=== PATIENT | male | born 1975 | race Caucasian/White ===

== ENCOUNTER 2019-05-25 16:10 | Emergency (ER) | payer OTHER ==
[~2019-05-25] VITALS: Ht 175.3 cm; Wt 131.5 kg
[2019-05-25 16:39] VITALS: BP_SYST 156
--- NOTE | 2019-05-25 18:44 | NUR ---
Patient to ER bed 7 to gown for evaluation. Side rails up. Report given to Teresita NATH.
--- NOTE | 2019-05-25 18:46 | NUR ---
Pt brought by self, A&Ox4, pt presents to ER with pain/swelling on R lower leg, pt states he had R ankle fracture 2 months ago, skin pink and warm, cap refill <3, VSS, respirations even and unlabored.
[2019-05-25] MEDS ORDERED: KETOROLAC TROMETHAMINE 60 MG/2 ML VIAL IM ONE (19:00)
--- NOTE | 2019-05-25 19:00 | NUR ---
Radha King [employer] at bedside examining patient
[2019-05-25 19:32] VITALS: BP_SYST 148
--- NOTE | 2019-05-25 19:33 | NUR ---
Patient given written and verbal discharge instructions and verbalizes understanding. ER MD discussed with patient the results and treatment provided. Patient in stable condition. ID arm band removed. Rx of Ibuprofen given. Patient educated on pain management and to follow up with PMD. Pain Scale 3/10 tolerable for patient Opportunity for questions provided and answered. Medication side effect fact sheet provided.
== END 2019-05-25 19:32 | disposition home or self-care (01) ==
LOC: SED 16:10
DX: R60.0 Localized edema (principal); I10 Essential (primary) hypertension
CPT/HCPCS: 93971; 96372; 99284; J1885

== ENCOUNTER 2020-10-23 14:56 | Emergency (ER) | payer OTHER, SELFPAY ==
[~2020-10-23] VITALS: Ht 175.3 cm; Wt 127.0 kg
[2020-10-23 15:07] VITALS: BP_SYST 170
--- NOTE | 2020-10-23 15:12 | NUR ---
Patient triaged and placed in ER tent. VSS and patient appears in no acute distress at this time. Awaiting available bed, and MD notified of need for MSE.
--- NOTE | 2020-10-23 15:13 | NUR ---
Patient was diagnosed today with COVID-19. His MD instructed him to check in to the ER due to cormorbidities. Patient has no complaints at this time.
--- NOTE | 2020-10-23 15:30 | NUR ---
ER in tent examining patient.
[2020-10-23 16:43] VITALS: BP_SYST 170
--- NOTE | 2020-10-23 16:43 | NUR ---
Patient given written and verbal discharge instructions and verbalizes understanding. ER MD discussed with patient the results and treatment provided. Patient in stable condition. ID arm band removed. Rx of Azithromycin, Promethazine DM, and Zinc given. Patient educated on pain management and to follow up with PMD. Pain Scale 0/10. Opportunity for questions provided and answered. Medication side effect fact sheet provided.
== END 2020-10-23 16:43 | disposition home or self-care (01) ==
LOC: SED 14:56
DX: U07.1 COVID-19 (principal); I10 Essential (primary) hypertension; E11.9 Type 2 diabetes mellitus without complications; E66.9 Obesity, unspecified
CPT/HCPCS: 36600; 71045; 82803-TC; 99284

== ENCOUNTER 2021-11-13 11:49 | Emergency (ER) | payer OTHER, SELFPAY ==
[~2021-11-13] VITALS: Ht 152.4 cm; Wt 136.1 kg
--- NOTE | 2021-11-13 12:00 | NUR ---
Pt brought by self, A&Ox4, pt presents to ER with L flank pain, Hx of kidney stones, skin pink and warm, cap refill <3, VSS.
[2021-11-13 12:36] VITALS: BP_SYST 196
== END 2021-11-13 14:00 | disposition left against medical advice (07) ==
LOC: SED 11:49
DX: R10.9 Unspecified abdominal pain (principal); Z53.21 Procedure and treatment not carried out due to patient leaving prior to being seen by health care provider
CPT/HCPCS: 99281